=== PATIENT | female | born 1945 | race African-American/Black ===

== ENCOUNTER 2017-02-14 16:19 | Observation (INO) | payer MEDICAID, MEDICARE ==
[2017-02-14] VITALS (7 sets, daily range): BP systolic 133–220; BP diastolic 71–99; PULSE 56–72; RESP 18–21; TEMP 98.3–98.7; O2SAT 97–99
[~2017-02-14] VITALS: Ht 167.6 cm; Wt 96.0 kg
[~2017-02-14 16:19] MED LIST: LORTA10 PO; MOBI15TA PO
[2017-02-14] MEDS ORDERED: HYDR-3535 PO (17:52)
[2017-02-14] MEDS ORDERED: CLON0.1T PO (17:53)
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
[2017-02-14] MEDS ORDERED: NITROGLYCERIN 2% OINT 1 GM PACKET TOP ONE (18:15)
[2017-02-14] MEDS ORDERED: ASPIRIN 81 MG CHEW TAB PO ONE (18:15)
[2017-02-14] MEDS ORDERED: SODIUM CHLORIDE 0.9% FLUSH 10 ML FLUSH IVF PRN (18:15)
[2017-02-14 19:06] LABS: AUTOMATED NEUTROPHIL # 8.1 TH/MM3 (1.8-7.7); BASOPHIL # 0.1 TH/MM3 (0-0.2); BASOPHIL % 0.9 % (0.0-2.0); EOSINOPHIL # 0.1 TH/MM3 (0-0.4); EOSINOPHIL % 1.2 % (0.0-4.0); HEMATOCRIT 36.7 % (35.0-46.0); HEMO FLAGS DIFF FINAL; LYMPH % 18.2 % (9.0-44.0); MEAN CELL VOLUME 85.7 FL (80.0-100.0); MEAN CORPUSCULAR HEMOGLOBIN 27.8 PG (27.0-34.0); MEAN CORPUSCULAR HGB CONC 32.5 % (32.0-36.0); MONO % 7.7 % (0.0-8.0); PLATELET COUNT 334 TH/MM3 (150-450); RED BLOOD COUNT 4.29 MIL/MM3 (4.00-5.30); RED CELL DISTRIBUTION WIDTH 14.7 % (11.6-17.2); WHITE BLOOD COUNT 11.3 TH/MM3 (4.0-11.0)
[2017-02-14 19:12] LABS: APTT (PATIENT) 28.2 SEC (24.3-30.1); INTERNATIONAL NORMALIZED RATIO 0.9 RATIO; PROTHROMBIN TIME - PATIENT 9.8 SEC (9.8-11.6)
[2017-02-14 19:25] LABS: BICARBONATE 34.2 MEQ/L (21.0-32.0); MAGNESIUM 2.6 MG/DL (1.5-2.5); POTASSIUM 3.8 MEQ/L (3.5-5.1)
--- NOTE | 2017-02-14 19:27 | RADRPT ---
EXAM DATE/TIME: 02/14/2017 18:25 [facility] COMPARISON: No previous studies available for comparison. INDICATIONS : Left sided chest pain. MEDICAL HISTORY : Childhood asthma. SURGICAL HISTORY : None. ENCOUNTER: Initial ACUITY: 3 days PAIN SCORE: 7/10 LOCATION: Left chest FINDINGS: A single view of the chest demonstrates the lungs to be symmetrically aerated without evidence of mas s, infiltrate or effusion. The cardiomediastinal contours are unremarkable. Osseous structures are intact. CONCLUSION: Normal examination. Esteban Patiño MD on February 14, 2017 at 19:25 Board Certified Radiologist. This report was verified electronically.
[2017-02-14] MEDS ORDERED: ONDANSETRON HCL 4 MG/2 ML VIAL IV PUSH ONE (19:30)
[2017-02-14] MEDS ORDERED: MORPHINE SULFATE 8 MG/ML INJ IV PUSH ONE (19:30)
[2017-02-14] MEDS ORDERED: ACETAMINOPHEN/HYDROcodone 325 MG/10 MG TAB PO ONE (21:45)
[2017-02-14] MEDS ORDERED: SODIUM CHLORIDE 0.9% FLUSH 10 ML FLUSH IV FLUSH PRN (21:45)
[2017-02-15] MEDS: NITROGLYCERIN 2% OINT 1 GM PACKET TOP SCH ×3 (00:11→12:34)
[2017-02-15 00:28] VITALS: PULSE 52
[2017-02-15 03:45] VITALS: BP 181/86; PULSE 84; RESP 18; TEMP 98; O2SAT 99
[2017-02-15 04:29] VITALS: PULSE 61
[2017-02-15] MEDS ORDERED: MORPHINE SULFATE 4 MG/ML INJ IV PUSH ONE (04:45)
[2017-02-15 06:10] VITALS: O2SAT 98
[2017-02-15 08:43] VITALS: BP 164/74; PULSE 54; RESP 20; TEMP 98; O2SAT 96
[2017-02-15] MEDS ORDERED: SODIUM CHLORIDE 0.9% FLUSH 10 ML FLUSH IV FLUSH SCH (09:00)
[2017-02-15] MEDS ORDERED: KETOROLAC TROMETHAMINE 30 MG/ML (IVP) VIAL IV PUSH ONE (10:00)
[2017-02-15] MEDS ORDERED: REGADENOSON INJ 0.4 MG/5 ML SYR ONE (11:16)
--- NOTE | 2017-02-15 12:19 | RADRPT ---
EXAM DATE/TIME: 02/15/2017 10:24 [facility] COMPARISON: No previous studies available for comparison. INDICATIONS : Left sided chest pain for three days. Angina. DOSE: 26.1 mCi Tc99m Myoview at stress. 8.5 mCi Tc99m Myoview at rest. 0.4 mg Lexiscan STRESS SYMPTOMS: Chest pain. EJECTION FRACTION: 63% MEDICAL HISTORY : Asthma. SURGICAL HISTORY : Appendectomy. section. ENCOUNTER: Initial ACUITY: 3 days PAIN SCALE: 7/10 LOCATION: Left chest TECHNIQUE: The patient underwent pharmacologic stress with infusion of prescribed dose. Continuous ECG tracing was monitored during stress. Gated SPECT imaging was performed after stress and conventional SPECT i maging was performed at rest. The examination was performed on a SPECT/CT scanner, both attenuation and non-corrected datasets were reviewed. FINDINGS: DISTRIBUTION: The best perfused wall at rest is the anterior lateral wall. Small fixed defect is seen in the anter ior septal region. There is no redistribution to suggest ischemia. However Moderate gut activity do es obscure the inferior wall. GATED STUDY: There is intact wall motion and thickening without hypokinetic or dyskinetic segments. CONCLUSION: Ejection fraction is titrated at 63% his compromised by patient motion. RISK CATEGORY: Low (<1% Annual Mortality Rate) Carlos Carranza MD FACR on February 15, 2017 at 12:16 Board Certified Radiologist. This report was verified electronically.
[2017-02-15] MEDS ORDERED: MORPHINE SULFATE 4 MG/ML INJ IV STA (12:47)
[2017-02-15 13:00] VITALS: RESP 16
--- NOTE | 2017-02-15 13:00 | EKG ---
Date Performed: 02/15/2017 Time Performed: 03:47:20 PTAGE: 71 years EKG: Sinus rhythm MARKED LEFT AXIS DEVIATION VOLTAGE CRITERIA FOR LVH POSSIBLE SEPTAL MYOCARDIAL INFARCTION MODERATE T -WAVE ABNORMALITY, CONSIDER INFERIOR ISCHEMIA ABNORMAL ECG INTERPRETATION BASED ON A DEFAULT AGE OF 6 0 YEARS NO PREVIOUS TRACING DOCTOR: Russ Du Interpretating Date/Time 02/15/2017 13:00:02
--- NOTE | 2017-02-15 13:03 | EKG ---
Date Performed: 02/15/2017 Time Performed: 00:54:35 PTAGE: 71 years EKG: SINUS BRADYCARDIA MARKED LEFT AXIS DEVIATION INCOMPLETE RIGHT BUNDLE BRANCH BLOCK LEFT VENT RICULAR HYPERTROPHY AND NONSPECIFIC ST-T CHANGE ABNORMAL ECG PREVIOUS TRACING : 02/14/2017 21.52 DOCTOR: Russ Du Interpretating Date/Time 02/15/2017 13:01:20
--- NOTE | 2017-02-15 13:04 | EKG ---
Date Performed: 02/14/2017 Time Performed: 21:52:29 PTAGE: 71 years EKG: SINUS BRADYCARDIA MARKED LEFT AXIS DEVIATION LEFT VENTRICULAR HYPERTROPHY AND ST-T CHANGE A BNORMAL ECG PREVIOUS TRACING : 02/14/2017 18.39 DOCTOR: Russ Du Interpretating Date/Time 02/15/2017 13:02:40
--- NOTE | 2017-02-15 13:05 | EKG ---
Date Performed: 02/14/2017 Time Performed: 18:39:08 PTAGE: 71 years EKG: SINUS BRADYCARDIA MARKED LEFT AXIS DEVIATION INTRAVENTRICULAR CONDUCTION DELAY LEFT VENTRIC ULAR HYPERTROPHY AND ST-T CHANGE ABNORMAL ECG PREVIOUS TRACING : 09/11/1998 06.49 DOCTOR: Russ Du Interpretating Date/Time 02/15/2017 13:03:58
--- NOTE | 2017-02-15 13:40 | HHI.DCPOC ---
Discharge Care Plan Diagnosis: (1) Atypical chest pain (2) Chronic low back pain Goals to Promote Your Health * To prevent worsening of your condition and complications * To maintain your health at the optimal level Directions to Meet Your Goals Take your medications as prescribed Follow your dietary instruction Follow activity as directed Keep your appointments as scheduled Take your immunizations and boosters as scheduled If your symptoms worsen call your PCP, if no PCP go to Urgent Care Center or Emergency Room Smoking is Dangerous to Your Health. Avoid second hand smoke Call the 24-hour hour crisis hotline for domestic abuse at [facility] Feb 15, 2017 13:39
[2017-02-15] MEDS ORDERED: cloNIDine HCL 0.1 MG TAB PO SCH (21:00)
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
--- NOTE | 2017-02-18 17:05 | TR ---
Date Performed: 02/15/2017 Time Performed: 11:30:09 DOCTOR: Zita Todd DRUG LIST: CLINICAL HISTORY: CHEST PAIN REASON FOR TEST: CHEST PAIN REASON FOR ENDING: OBSERVATION: CONCLUSION: Lexiscan stress test was performed under standard four minute protocol. Radionuclid e was injected one minute prior to ending the test. No electrocardiographic abormalities were present to suggest ischemia. Nuclear imaging and interpretation are pending. COMMENTS:
== END 2017-02-15 15:37 | disposition home or self-care (01) ==
LOC: NEPE 16:19 → NEDA 19:52 → NEPFCDU 23:11
PROVIDERS: ADMIT Internal Medicine Interventional Cardiology; ATTEND Internal Medicine Interventional Cardiology
DX: R07.89 Other chest pain (principal); I10 Essential (primary) hypertension; G89.29 Other chronic pain; M54.5 Low back pain; R94.31 Abnormal electrocardiogram [ECG] [EKG]; J45.909 Unspecified asthma, uncomplicated; Z68.34 Body mass index [BMI] 34.0-34.9, adult; Z87.891 Personal history of nicotine dependence; Z98.1 Arthrodesis status
CPT/HCPCS: 71010; 78452; 80048; 82550; 83735; 84484; 85025; 85610; 85730; 93005; 93017; 96374; 96375; 96376; 99285; A9502; G0378; J1885; J2270; J2405; J2785

== ENCOUNTER 2017-02-28 16:50 | Emergency (ER) | payer MEDICARE ==
[~2017-02-28] VITALS: Ht 167.6 cm; Wt 118.0 kg
[~2017-02-28 16:50] MED LIST changes: +CLON0.1T PO; +HYDR-3535 PO; -LORTA10 PO; -MOBI15TA PO
[2017-02-28 16:51] VITALS: BP 173/77; PULSE 63; RESP 20; TEMP 98.6; O2SAT 99
[2017-02-28] MEDS ORDERED: AMLO5 PO (18:57)
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
[2017-02-28] MEDS ORDERED: SODIUM CHLORIDE 0.9% FLUSH 10 ML FLUSH IVF PRN (19:00)
[2017-02-28] MEDS ORDERED: ONDANSETRON HCL 4 MG/2 ML VIAL IV PUSH ONE (19:00)
[2017-02-28] MEDS ORDERED: MORPHINE SULFATE 4 MG/ML INJ IV PUSH ONE (19:00)
[2017-02-28] MEDS ORDERED: amLODIPine BESYLATE 5 MG TAB PO ONE (19:00)
[2017-02-28 19:11] VITALS: BP 137/78; PULSE 52; RESP 18; O2SAT 100; O2SAT 99
[2017-02-28 19:58] LABS: AUTOMATED NEUTROPHIL # 5.8 TH/MM3 (1.8-7.7); BASOPHIL # 0.1 TH/MM3 (0-0.2); EOSINOPHIL # 0.2 TH/MM3 (0-0.4); EOSINOPHIL % 1.7 % (0.0-4.0); HEMATOCRIT 39.5 % (35.0-46.0); HEMO FLAGS DIFF FINAL; LYMPH % 24.8 % (9.0-44.0); LYMPHOCYTE # 2.2 TH/MM3 (1.0-4.8); MEAN CELL VOLUME 85.6 FL (80.0-100.0); MEAN CORPUSCULAR HEMOGLOBIN 27.4 PG (27.0-34.0); MONO % 6.8 % (0.0-8.0); NEUT % 65.7 % (16.0-70.0); PLATELET COUNT 430 TH/MM3 (150-450); RED BLOOD COUNT 4.62 MIL/MM3 (4.00-5.30); RED CELL DISTRIBUTION WIDTH 14.9 % (11.6-17.2); WHITE BLOOD COUNT 8.9 TH/MM3 (4.0-11.0)
[2017-02-28 20:22] LABS: ANION GAP 7 MEQ/L (5-15); AST (GOT) 27 U/L (15-37); BICARBONATE 29.3 MEQ/L (21.0-32.0); BLOOD UREA NITROGEN 18 MG/DL (7-18); CHLORIDE 102 MEQ/L (98-107); GLOMERULAR FILTRATION RATE 52 ML/MIN (>89); MAGNESIUM 2.5 MG/DL (1.5-2.5); SODIUM (NA) 138 MEQ/L (136-145)
[2017-02-28 20:23] LABS: POTASSIUM 4.7 MEQ/L (3.5-5.1)
[2017-02-28 20:25] LABS: ALKALINE PHOSPHATASE 129 U/L (45-117); ALT (GPT) 27 U/L (10-53); TOTAL BILIRUBIN ADULT 0.3 MG/DL (0.2-1.0)
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
--- NOTE | 2017-02-28 20:50 | EKG ---
Date Performed: 02/28/2017 Time Performed: 19:16:12 PTAGE: 71 years EKG: SINUS BRADYCARDIA MARKED LEFT AXIS DEVIATION LEFT VENTRICULAR HYPERTROPHY AND ST-T CHANGE P OSSIBLE LATERAL MYOCARDIAL INFARCTION ABNORMAL ECG No significant change from prior electrocardiogram . PREVIOUS TRACING : 02/15/2017 03.47 DOCTOR: Enzo Mckeon Interpretating Date/Time 02/28/2017 20:48:35
[2017-02-28 21:21] VITALS: BP 144/76; TEMP 98.4
== END 2017-02-28 21:23 | disposition home or self-care (01) ==
LOC: NEPC 16:50
DX: M54.5 Low back pain (principal); G89.29 Other chronic pain; R94.31 Abnormal electrocardiogram [ECG] [EKG]; I10 Essential (primary) hypertension; J45.909 Unspecified asthma, uncomplicated
CPT/HCPCS: 80053; 83735; 85025; 93005; 96374; 96375; 99284; J2270; J2405

== ENCOUNTER 2017-08-09 10:28 | Emergency (ER) | payer MEDICARE ==
[~2017-08-09] VITALS: Ht 167.6 cm; Wt 102.0 kg
[2017-08-09] MEDS ORDERED: GADODIAMIDE PF 287 MG/ML 20 ML VIAL (for RAD MRI) IVCONTRAST ONE (10:29)
[2017-08-09 10:34] VITALS: BP 197/88; PULSE 61; RESP 16; TEMP 98.3; O2SAT 98
[2017-08-09] MEDS ORDERED: HYDR-3583 PO (10:46)
[2017-08-09] MEDS ORDERED: PROCHLORPERAZINE INJ 10 MG/2 ML VIAL IV PUSH ONE (11:00)
[2017-08-09] MEDS ORDERED: ACETAMINOPHEN 325 MG TAB PO ONE (11:00)
[2017-08-09] MEDS ORDERED: diphenhydrAMINE HCL 50 MG/ML VIAL IM ONE (11:00)
[2017-08-09] MEDS ORDERED: diphenhydrAMINE HCL 50 MG/ML VIAL IV PUSH ONE (11:15)
[2017-08-09 11:36] LABS: AUTOMATED NEUTROPHIL # 4.7 TH/MM3 (1.8-7.7); BASOPHIL # 0.1 TH/MM3 (0-0.2); BASOPHIL % 0.7 % (0.0-2.0); EOSINOPHIL # 0.2 TH/MM3 (0-0.4); EOSINOPHIL % 2.5 % (0.0-4.0); HEMATOCRIT 37.4 % (35.0-46.0); HEMOGLOBIN 12.5 GM/DL (11.6-15.3); MEAN CELL VOLUME 85.3 FL (80.0-100.0); MEAN CORPUSCULAR HEMOGLOBIN 28.5 PG (27.0-34.0); MEAN CORPUSCULAR HGB CONC 33.4 % (32.0-36.0); MEAN PLATELET VOLUME 7.4 FL (7.0-11.0); MONO % 7.5 % (0.0-8.0); MONOCYTE # 0.6 TH/MM3 (0-0.9); NEUT % 62.3 % (16.0-70.0); PLATELET COUNT 371 TH/MM3 (150-450); RED BLOOD COUNT 4.39 MIL/MM3 (4.00-5.30); RED CELL DISTRIBUTION WIDTH 14.6 % (11.6-17.2); WHITE BLOOD COUNT 7.6 TH/MM3 (4.0-11.0)
--- NOTE | 2017-08-09 11:42 | RADRPT ---
EXAM DATE/TIME: 08/09/2017 11:26 [facility] COMPARISON: No previous studies available for comparison. INDICATIONS : Cephalgia today. RADIATION DOSE: 38.82 CTDIvol (mGy) MEDICAL HISTORY : Hypertension. SURGICAL HISTORY : Appendectomy. ENCOUNTER: Initial ACUITY: 1 day PAIN SCALE: 9/10 LOCATION: Bilateral head TECHNIQUE: Multiple contiguous axial images were obtained of the head. Using automated exposure control and adj ustment of the mA and/or kV according to patient size, radiation dose was kept as low as reasonably a chievable to obtain optimal diagnostic quality images. DICOM format image data is available electro nically for review and comparison. FINDINGS: CEREBRUM: There is a mass in the sella extending into the suprasellar cistern. There is erosion of the dorsum s deepa. There is enlargement of the sella. The ventricles are normal for age. No evidence of midline s hift, cerebral mass lesion, hemorrhage or acute infarction. No extra-axial fluid collections are see n. POSTERIOR FOSSA: The cerebellum and brainstem are intact. The 4th ventricle is midline. The cerebellopontine angle i s unremarkable. EXTRACRANIAL: The visualized portion of the orbits is intact. SKULL: The calvaria is intact. No evidence of skull fracture. CONCLUSION: Mass involving the sellar and extending to the suprasellar cistern region with enlargement of the brigida la and erosion of the dorsum sella. This is nonspecific. It most likely is secondary to a pituitary m acroadenoma although other etiologies including aneurysm cannot be excluded. This could be further ev aluated with a contrast-enhanced MRI examination. Esteban Patiño MD on August 09, 2017 at 11:37 Board Certified Radiologist. This report was verified electronically.
[2017-08-09 11:49] LABS: ALBUMIN 3.7 GM/DL (3.4-5.0); AST (GOT) 18 U/L (15-37); BICARBONATE 30.4 MEQ/L (21.0-32.0); BLOOD UREA NITROGEN 14 MG/DL (7-18); CALCIUM 9.1 MG/DL (8.5-10.1); CHLORIDE 104 MEQ/L (98-107); CREATININE 1.15 MG/DL (0.50-1.00); GLOMERULAR FILTRATION RATE 56 ML/MIN (>89); GLUCOSE,RANDOM 104 MG/DL (74-106); SODIUM (NA) 138 MEQ/L (136-145)
[2017-08-09 11:50] VITALS: BP 168/82; PULSE 53; RESP 14; O2SAT 98
[2017-08-09 11:50] LABS: ALT (GPT) 19 U/L (10-53)
[2017-08-09 11:53] LABS: ALKALINE PHOSPHATASE 132 U/L (45-117); TOTAL BILIRUBIN ADULT 0.3 MG/DL (0.2-1.0); TOTAL PROTEIN 7.6 GM/DL (6.4-8.2)
[2017-08-09] MEDS ORDERED: MORPHINE SULFATE 4 MG/ML INJ IV PUSH ONE (12:45)
[2017-08-09 17:13] VITALS: BP 159/79; PULSE 55; RESP 16; O2SAT 98
--- NOTE | 2017-08-09 17:34 | RADRPT ---
EXAM DATE/TIME: 08/09/2017 15:50 [facility] COMPARISON: CT BRAIN W/O CONTRAST, August 09, 2017, 11:26. INDICATIONS : Mass. CONTRAST: 20 cc Omniscan (gadodiamide) IV MEDICAL HISTORY : Hypertension. SURGICAL HISTORY : Appendectomy. Fusion, cervical. ENCOUNTER: Initial ACUITY: 1 day PAIN SCORE: 0/10 LOCATION: cranial TECHNIQUE: Multiplanar, multisequence MRI of the brain was performed both prior to and following the administrat ion of paramagnetic contrast. FINDINGS: CEREBRUM: There is mild generalized atrophy. Ventricles are normal given the degree of atrophy present. There i s a heterogeneous mildly T2 hyperintense mass with within the sella and suprasellar region. It most c losely follows sargent matter signal on T1 and T2-weighted imaging and demonstrates heterogeneous enhanc ement. No cystic areas are identified. Prior CT demonstrated no calcification within the lesion. The mass extends into the right cavernous sinus and abuts the right cavernous carotid artery but causes n o occlusion. The mass measures approximately 2.6 x 1.9 x 2.6 cm and has mass effect on the adjacent s tructures including the optic chiasm. It is not separate from the infundibulum or pituitary gland. Th ere are no flow-voids within the mass to suggest that it represents a vascular valley. No extension i nto the sphenoid sinus is identified. There are no findings to indicate recent ischemia and no acute blood products are identified. WHITE MATTER: There is moderate severity periventricular and subcortical white matter signal change. POSTERIOR FOSSA: The cerebellum and brainstem are intact. The 4th ventricle is midline. The cerebellopontine angle is unremarkable. The cerebellar tonsils are normal in position. DIFFUSION IMAGING: No focal areas of restricted diffusion are seen. No evidence of acute infarction. EXTRACRANIAL: The visualized portions of the orbits and paranasal sinuses are unremarkable. POST-CONTRAST: No abnormal areas of parenchymal or dural enhancement. No evidence of blood-brain barrier breakdown. CONCLUSION: 1. The mass identified on CT measures approximately 2.6 x 1.9 x 2.6 cm and is centered within the brigida la and suprasellar space and also invades the right cavernous sinus. 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 No separate pituitary gland is identified suggesting again st a meningioma and no features are identified to suggest a vascular etiology. The lesion has mass ef fect on the optic chiasm. 2. Chronic changes include mild cerebral atrophy and moderate severity chronic periventricular white matter change characteristic of chronic microvascular ischemia. Esteban Veronica MD on August 09, 2017 at 17:21 Board Certified Radiologist. This report was verified electronically.
[2017-08-09] MEDS ORDERED: BUTA1CAP PO (17:53)
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
== END 2017-08-09 17:54 | disposition home or self-care (01) ==
LOC: NEPC 10:28
DX: R51 Headache (principal); I10 Essential (primary) hypertension
CPT/HCPCS: 70450; 70553; 80053; 85025; 96374; 96375; 99284; A9579; J0780; J1200; J2270

== ENCOUNTER 2018-01-05 23:13 | Observation (INO) ==
[2018-01-06] MEDS ORDERED: Morphine Inj 4 MG/ML Vial IV.PUSH ONE (00:18)
--- NOTE | 2018-01-06 00:18 | ED ---
HPI General Chief complaint: Back Pain/Injury Stated complaint: High BP Time Seen by Provider: 01/06/18 00:17 History of Present Illness HPI narrative: The patient is a 72 year old female who presents to the [facility] emergency department with a history of headache and dizziness that began in the afternoon. She reports that it was associated with back pain in the right side of her low back. She reports that the back pain is similar to her chronic low back pain. She got off of work she took a hydrocodone for this. She reports that she is followed by Dr. Winn for her chronic back pain and opiate prescriptions. The patient reports that she is on clonidine for high blood pressure. She reports that she got home and checked her blood pressure and noted that it was elevated. She last took the clonidine at approximately 5 PM. The patient reports that the headache is bitemporal. She denies having any nausea or vomiting associated with this. She denies having any neck pain. She denies having any numbness or tingling to her extremities or weakness or extremities. She denies having any vertigo. She denies having any changes in her vision, facial droop, or difficulty with word finding ability. The patient reports that she does occasionally have dyspnea, especially when she is under increased stress. She reports that she did have a sensation of shortness of breath, dyspnea last night due to stressors at home. On review of systems otherwise, the patient denies having any known recent fevers, cough, congestion , chest pain, abdominal pain, vomiting, diarrhea, or urinary symptoms. Related Data Home Medications Medication Instructions Recorded Confirmed clonidine HCl 0.1 mg PO BID 01/05/18 01/05/18 hydrocodone-acetaminophen 1 tab PO Q4-6H PRN 01/05/18 01/05/18 Allergies Allergy/AdvReac Type Severity Reaction Status Date / Time No Known Allergies Allergy Verified 01/05/18 23:20 Review of Systems ROS Unobtainable All other systems reviewed negative except as stated in HPI [facility] Medical History Medical History Chronic back pain (Acute) Hypertension (Acute) Patient denies medical problems (Acute) Surgical History Surgical History History of neck surgery (Acute) History of uterine suspension procedure (Acute) Surgical procedure on lower extremity within past 6 months (Acute) Social History Social History Substance History: No History of Abuse Second Hand Smoke Exposure: No Smoking Status: Former smoker How Often Do You Have a Drink Containing Alcohol: Monthly or less Recent Travel in [facility] within the Last 8 Weeks: No Recent Out of Country Travel within the Last 8 Weeks: No Immunization History Tetanus Immunization: Unsure Hx Influenza Vaccine This Season: No Exam Const General: cooperative, no acute distress and well developed Nutritional Appearance: well nourished Orientation: alert, awake and oriented x3 HENMT Head: normocephalic and atraumatic Nose: no nasal discharge and no epistaxis Mouth: moist mucous membranes Throat: posterior oropharynx normal Eyes Sclera: normal sclerae Pupils: PERRL Neck Neck: normal visual inspection, trachea midline and no JVD Resp Effort & Inspection: no use of accessory muscles Auscultation: clear to auscultation bilaterally Cardio Rate: regular rate Rhythm: regular rhythm Heart Sounds: no murmurs GI Inspection: non-distended Palpation: soft, no hepatosplenomegaly and nontender Back/Spine/Pelvis Back: no CVA tenderness Cervical Spine: normal cervical lordosis and No cervical spinal tenderness Thoracic/Lumbar Spine: No thoracic spinal tenderness, No lumbar spinal tenderness and other (Patient reports paraspinal muscle tenderness on the right side of the lumbar paraspinal musculature) Skin General: dry skin (warm) Neuro General: alert, awake and oriented x3 Cranial Nerves: CN's II-XI intact bilaterally Speech: speech normal Motor: no movement abnormalities noted Sensory Exam: no sensory deficits noted Extrem General: normal to inspection (Except in the left leg, hyperpigmentation is noted of the left leg with venous stasis changes. The patient reports having varicose vein surgery on the left leg previously with a history of this hyperpigmentation since then), no clubbing, no cyanosis and no edema Psych Mood: congruent mood Affect: normal affect Judgment: judgment good Course Consultations Consultation #1: The patient's results were discussed with the patient, including the plan of care. I explained that further testing and/ or monitoring is indicated based on the patient's history, examination, and/ or laboratory findings. Therefore, I recommended admission for additional evaluation. The patient expressed understanding and was agreeable with this plan. The patient was admitted to the hospital in Dr. Barnett condition and sent to a bed under the care of the [facility] service. Initial Documented Vital Signs Temperature 98.3 F 01/05/18 23:20 Pulse Rate 63 01/05/18 23:20 Respiratory Rate 16 01/05/18 23:20 Blood Pressure 192/77 H 01/05/18 23:20 Pulse Oximetry 98 01/05/18 23:20 Last Documented Vital Signs Temperature 98.8 F 01/07/18 03:44 Pulse Rate 56 L 01/07/18 03:44 Respiratory Rate 17 01/07/18 03:44 Blood Pressure 156/74 H 01/07/18 03:44 Pulse Oximetry 98 01/07/18 03:44 Medical Decision Making MDM Narrative Medical decision making narrative: During the course of the patient's emergency department visit, the patient's history, examination, and differential diagnosis were reviewed with the patient. The patient was placed on a cardiac rn with oximetry and frequent blood pressure monitoring. The patient had IV access obtained and blood work sent for analysis. The patient was initially provided morphine 4 mg IV for pain, Reglan 5 mg IV for nausea. Laboratory studies are remarkable for a white count of 9.7, platelets 366, neutrophil percent 75.8, hemoglobin 12.1.PT PTT within normal limits, CMP is remarkable for a troponin I that is elevated at 0.07, CPK is 88, lipase 64, GFR is 52, creatinine 1.23, chloride 109, anion gap is 3. The patient's troponins are compared to prior troponins done at this facility. The patient last had a troponin done on no on February 15, 2017 that was 0.02. Given the patient's history of hypertension, shortness of breath at times with exertion, and elevated troponin, the patient will be admitted to the hospitalist service for continued evaluation and treatment. The patient reported taking an aspirin earlier today. The patient was given nitroglycerin 1 inch [address] chest wall. 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 The patient's results were discussed with her regarding the CT scan findings. She reports that she is aware of this and it is monitored by her primary care physician. The patient's results were discussed with the patient, including the plan of care. I explained that further testing and/ or monitoring is indicated based on the patient's history, examination, and/ or laboratory findings. Therefore, I recommended admission for additional evaluation. The patient expressed understanding and was agreeable with this plan. The patient was admitted to the hospital in guarded condition and sent to a bed under the care of the [facility] service. Lab Data Result diagrams: 01/06/18 00:24 01/06/18 00:24 Lab Results 01/06/18 01/06/18 01/06/18 Range/Units 00:24 00:24 00:24 WBC 9.7 (4.0-11.0) th/mm3 RBC 4.39 (4.00-5.30) mil/mm3 Hgb 12.1 (11.6-15.3) gm/dL Hct 37.3 (35.0-46.0) % MCV 85.0 (80.0-100.0) fL MCH 27.5 (27.0-34.0) pg MCHC 32.4 (32.0-36.0) % RDW 14.6 (11.6-17.2) % Plt Count 366 (150-450) th/mm3 MPV 7.6 (7.0-11.0) fL Neut % (Auto) 75.8 H (16.0-70.0) % Lymph % (Auto) 14.7 (9.0-44.0) % [place] % (Auto) 7.3 (0.0-8.0) % Eos % (Auto) 1.5 (0.0-4.0) % Baso % (Auto) 0.7 (0.0-2.0) % Neut # (Auto) 7.3 (1.8-7.7) th/mm3 Lymph # (Auto) 1.4 (1.0-4.8) th/mm3 [place] # (Auto) 0.7 (0.0-0.9) th/mm3 Eos # (Auto) 0.1 (0.0-0.4) th/mm3 Baso # (Auto) 0.1 (0.0-0.2) th/mm3 WBC Differential . Differential Comment Auto diff final PT 9.8 (9.8-11.6) sec INR 1.0 Ratio APTT 26.6 (24.3-30.1) sec Sodium 142 (136-145) meq/L Potassium 3.9 (3.5-5.1) meq/L Chloride 109 H (98-107) meq/L Carbon Dioxide 29.6 (21.0-32.0) meq/L Anion Gap 3 L (5-15) meq/L BUN 15 (7-18) mg/dL Creatinine 1.23 H (0.50-1.00) mg/dL Estimated GFR 52 L (>89) mL/min Random Glucose 100 (74-106) mg/dL Calcium 8.5 (8.5-10.1) mg/dL Total Bilirubin 0.4 (0.2-1.0) mg/dL AST 17 (15-37) U/L ALT 24 (10-53) U/L Alkaline Phosphatase 108 (45-117) U/L Total Creatine Kinase 88 (26-192) U/L Troponin I 0.07 H (0.02-0.05) ng/mL Total Protein 7.5 (6.4-8.2) g/dL Albumin 3.6 (3.4-5.0) g/dL Lipase 64 L (73-393) U/L Urine Color (Yellw/Straw) Urine Clarity (Clear) Urine pH (5.0-8.5) Ur Specific Conde (1.002-1.035) Urine Protein (Neg-Trace) mg/dL Urine Glucose (UA) (Negative) mg/dL Urine Ketones (Negative) mg/dL Urine Occult Blood (Negative) Urine Nitrate (Negative) Urine Bilirubin (Negative) Urine Urobilinogen (Less than 2) mg/dL Ur Leukocyte Esterase (Negative) Urine RBC (0-3) /hpf Urine WBC (0-5) /hpf Ur Squamous Epith Cells (0-5) /hpf Urine Bacteria (None) /hpf Urine Mucus (Occasional) /lpf Micro UA Comment Urine Culture Comments 01/06/18 01/06/18 01/06/18 Range/Units 03:45 10:05 12:05 WBC (4.0-11.0) th/mm3 RBC (4.00-5.30) mil/mm3 Hgb (11.6-15.3) gm/dL Hct (35.0-46.0) % MCV (80.0-100.0) fL MCH (27.0-34.0) pg MCHC (32.0-36.0) % RDW (11.6-17.2) % Plt Count (150-450) th/mm3 MPV (7.0-11.0) fL Neut % (Auto) (16.0-70.0) % Lymph % (Auto) (9.0-44.0) % [place] % (Auto) (0.0-8.0) % Eos % (Auto) (0.0-4.0) % Baso % (Auto) (0.0-2.0) % Neut # (Auto) (1.8-7.7) th/mm3 Lymph # (Auto) (1.0-4.8) th/mm3 [place] # (Auto) (0.0-0.9) th/mm3 Eos # (Auto) (0.0-0.4) th/mm3 Baso # (Auto) (0.0-0.2) th/mm3 WBC Differential Differential Comment PT (9.8-11.6) sec INR Ratio APTT (24.3-30.1) sec Sodium (136-145) meq/L Potassium (3.5-5.1) meq/L Chloride (98-107) meq/L Carbon Dioxide (21.0-32.0) meq/L Anion Gap (5-15) meq/L BUN (7-18) mg/dL Creatinine (0.50-1.00) mg/dL Estimated GFR (>89) mL/min Random Glucose (74-106) mg/dL Calcium (8.5-10.1) mg/dL Total Bilirubin (0.2-1.0) mg/dL AST (15-37) U/L ALT (10-53) U/L Alkaline Phosphatase (45-117) U/L Total Creatine Kinase 70 73 (26-192) U/L Troponin I 0.06 H 0.06 H (0.02-0.05) ng/mL Total Protein (6.4-8.2) g/dL Albumin (3.4-5.0) g/dL Lipase (73-393) U/L Urine Color Yellow (Yellw/Straw) Urine Clarity Hazy H (Clear) Urine pH 6.0 (5.0-8.5) Ur Specific Conde 1.015 (1.002-1.035) Urine Protein Negative (Neg-Trace) mg/dL Urine Glucose (UA) Negative (Negative) mg/dL Urine Ketones Negative (Negative) mg/dL Urine Occult Blood Negative (Negative) Urine Nitrate Negative (Negative) Urine Bilirubin Negative (Negative) Urine Urobilinogen Less than 2 (Less than 2) mg/dL Ur Leukocyte Esterase Large H (Negative) Urine RBC 1 (0-3) /hpf Urine WBC 8 H (0-5) /hpf Ur Squamous Epith Cells 7 (0-5) /hpf Urine Bacteria Rare H (None) /hpf Urine Mucus Few H (Occasional) /lpf Micro UA Comment Culture not ind Urine Culture Comments Culture not ind Imaging Data Radiologist's impression: Head CT 01/06/18 01:00 CONCLUSION: 1. Stable mass lesion in the sella measuring 1.8 cm in diameter and extending up into the base of the right sphenoid. 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 2. Mild periventricular small vessel ischemic demyelination. 3. Nothing acute. . Chest X-Ray 01/06/18 02:17 CONCLUSION: 1. Hypoinflation with some minimal atelectatic changes above the left hemidiaphragm. 2. Heart size is borderline prominent but well compensated. ECG Data Attestation: I personally reviewed and interpreted this ECG as follows: Interpretation: The patient had an EKG done. The patient's EKG reveals a sinus bradycardia heart rate of 55, QRS duration is 107 ms, QTC 451 ms. The patient is noted to have marked left axis deviation, and incomplete right bundle branch block, left ventricular hypertrophy with nonspecific ST-T wave abnormalities, ST depression noted in lead III, T waves are inverted in lead II, 3, V4, V5, V6 peer Discharge Plan Discharge Disposition Patient Disposition: 30 Still Patient Discharge Details Diagnosis: Hypertension, uncontrolled, Elevated troponin I level Physicians Team ED Provider: Beena Triplett Primary Care Provider: UNKNOWN, Attending Provider: Jose Alberto Stack Other Providers: [facility],Insurance Status ED Status: Left Department Discharge Information Discharge Date/Time: 01/06/18 05:04
[2018-01-06 00:48] LABS: Baso # (Auto) 0.1 th/mm3 (0.0-0.2); Baso % (Auto) 0.7 % (0.0-2.0); Eos # (Auto) 0.1 th/mm3 (0.0-0.4); Eos % (Auto) 1.5 % (0.0-4.0); Hematocrit 37.3 % (35.0-46.0); Hemoglobin 12.1 gm/dL (11.6-15.3); Lymph # (Auto) 1.4 th/mm3 (1.0-4.8); Lymph % (Auto) 14.7 % (9.0-44.0); Mean Corpuscular HGB Conc 32.4 % (32.0-36.0); Mean Corpuscular Hemoglobin 27.5 pg (27.0-34.0); Mean Platelet Volume 7.6 fL (7.0-11.0); Mono # (Auto) 0.7 th/mm3 (0.0-0.9); Mono % (Auto) 7.3 % (0.0-8.0); Neut # (Auto) 7.3 th/mm3 (1.8-7.7); Neut % (Auto) 75.8 % (16.0-70.0); Platelet Count 366 th/mm3 (150-450); Red Blood Count 4.39 mil/mm3 (4.00-5.30); Red Cell Distribution Width 14.6 % (11.6-17.2); White Blood Count 9.7 th/mm3 (4.0-11.0)
[2018-01-06 00:58] LABS: Activated Partial Thrombo Time 26.6 sec (24.3-30.1); Prothrombin Time 9.8 sec (9.8-11.6)
[2018-01-06 01:14] LABS: Alanine Aminotransferase 24 U/L (10-53); Albumin 3.6 g/dL (3.4-5.0); Alkaline Phosphatase 108 U/L (45-117); Anion Gap 3 meq/L (5-15); Aspartate Aminotransferase 17 U/L (15-37); Blood Urea Nitrogen 15 mg/dL (7-18); Calcium 8.5 mg/dL (8.5-10.1); Carbon Dioxide 29.6 meq/L (21.0-32.0); Chloride 109 meq/L (98-107); Glomerular Filtration Rate 52 mL/min (>89); Glucose,Random 100 mg/dL (74-106); Lipase 64 U/L (73-393); Potassium 3.9 meq/L (3.5-5.1); Sodium 142 meq/L (136-145); Total Protein 7.5 g/dL (6.4-8.2); Troponin I 0.07 ng/mL (0.02-0.05)
[2018-01-06 01:15] LABS: Creatine Kinase 88 U/L (26-192)
--- NOTE | 2018-01-06 01:53 | CT ---
EXAM DATE: 01/06/2018 1:30 AM EDT AGE/SEX: 72 years / Female INDICATIONS: High blood pressure, cephalgia. CLINICAL DATA: This is the patient's initial encounter. Patient reports that signs and symptoms have been present for 1 day and indicates a pain score of 4/10. MEDICAL/SURGICAL HISTORY: Hypertension. None. RADIATION DOSE: 36.24 CTDI (mGy) [place]PAR[place]: [facility] [place]/09/2017. [facility] [place] W/O CONTRAST, 08/09/2017. . TECHNIQUE: CT of the head without contrast. Using automated exposure control and adjustment of the mA and/or kV according to patient size, radiation dose was kept as low as reasonably achievable to ob tain optimal diagnostic quality images. DICOM format image data is available electronically for revi ew and comparison. FINDINGS: Cerebrum: The ventricles are normal for age. As seen previously, is a 1.8 cm mass lesion in the nathalie on of the sella extending cephalad into the base of the right sphenoid sinus. Findings are characteri stic of a macroadenoma and are grossly unchanged. Multiple periventricular areas of diminished atten uation characteristic of small vessel ischemic demyelination. No extraaxial fluid collections are see n. Posterior Fossa: The cerebellum and brainstem are intact. The 4th ventricle is midline. The cerebe llopontine angle is unremarkable. Extracranial: The visualized portion of the orbits is intact. Skull: The calvaria is intact. No evidence of skull fracture. CONCLUSION: 1. Stable mass lesion in the sella measuring 1.8 cm in diameter and extending up into the base of th e right sphenoid. 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 2. Mild periventricular small vessel ischemic demyelination. 3. Nothing acute. . Electronically signed by: Tay Alcaraz MD 01/06/2018 1:52 AM EDT
--- NOTE | 2018-01-06 02:37 | XR ---
EXAM DATE: 01/06/2018 2:30 AM EDT AGE/SEX: 72 years / Female INDICATIONS: Short of breath. CLINICAL DATA: This is the patient's initial encounter. Patient reports that signs and symptoms have been present for 1 day and indicates a pain score of 5/10. MEDICAL/SURGICAL HISTORY: None. None. [place] [facility] [place]. . FINDINGS: A single AP view of the chest demonstrates the lungs to be symmetrically hypoinflated with some minim al atelectatic changes above the left hemidiaphragm. No confluent infiltrate or effusion. Heart size is borderline prominent but well compensated. Osseous structures are intact with some degenerative sp urring of the dorsal spine. Anterior fixation of the mid and lower cervical spine. CONCLUSION: 1. Hypoinflation with some minimal atelectatic changes above the left hemidiaphragm. 2. Heart size is borderline prominent but well compensated. Electronically signed by: Tay Alcaraz MD 01/06/2018 2:35 AM EDT
[2018-01-06] MEDS ORDERED: Bisacodyl 10 MG Supp RECTAL PRN (03:45)
[2018-01-06] MEDS ORDERED: Sod Chloride 0.9% Inj 1,000 ML IV.CONT SCH (03:45)
[2018-01-06] MEDS ORDERED: Temazepam 15 MG Capsule PO PRN (03:45)
[2018-01-06] MEDS ORDERED: Acetaminophen 325 MG Tablet PO PRN (03:45)
[2018-01-06 04:11] LABS: Bacteria,Urine Rare /hpf; Bilirubin,Urine Negative (Negative); Clarity,Urine Hazy (Clear); Color,Urine Yellow (Yellw/Straw); Glucose,Urine (UA) Negative (Negative); Leukocyte Esterase,Urine Large (Negative); Mucus,Urine Few /lpf (Occasional); Nitrite,Urine Negative (Negative); Specific Gravity,Urine 1.015 (1.002-1.035); Squamous Epithelial Cell,Urine 7 /hpf (0-5)
[2018-01-06] MEDS: Heparin - SQ 10,000 UNITS/ML Vial SQ SCH ×3 (04:22→20:29)
[2018-01-06] MEDS: Senna/Docusate Sodium 8.6/50 MG Tablet PO SCH ×2 (08:41→20:29)
--- NOTE | 2018-01-06 10:00 | ECG ---
Date Performed: 01/06/2018 Time Performed: 02:39:01 PTAGE: 72 years EKG: SINUS BRADYCARDIA MARKED LEFT AXIS DEVIATION INCOMPLETE RIGHT BUNDLE BRANCH BLOCK LEFT VENT RICULAR HYPERTROPHY AND ST-T CHANGE POSSIBLE SEPTAL MYOCARDIAL INFARCTION ABNORMAL ECG PREVIOUS TRACING : 02/28/2017 19.16 DOCTOR: Ronnie Tomlinson Interpretating Date/Time 01/06/2018 09:59:58
[2018-01-06 11:21] LABS: Troponin I 0.06 ng/mL (0.02-0.05)
[2018-01-06] MEDS ORDERED: amLODIPine 5 MG Tablet PO SCH (12:00)
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
[2018-01-06] MEDS ORDERED: Butalbital/APAP/Caff 50/325/40 MG Tablet PO PRN (12:13)
[2018-01-06 13:02] LABS: Troponin I 0.06 ng/mL (0.02-0.05)
[2018-01-07] MEDS: Heparin - SQ 10,000 UNITS/ML Vial SQ SCH ×2 (04:30→12:15)
[2018-01-07] MEDS ORDERED: amLODIPine 10 MG Tablet PO SCH (05:35)
[2018-01-07 07:34] LABS: Baso # (Auto) 0.1 th/mm3 (0.0-0.2); Baso % (Auto) 0.8 % (0.0-2.0); Eos # (Auto) 0.1 th/mm3 (0.0-0.4); Eos % (Auto) 1.7 % (0.0-4.0); Hematocrit 34.6 % (35.0-46.0); Hemoglobin 11.4 gm/dL (11.6-15.3); Lymph # (Auto) 1.7 th/mm3 (1.0-4.8); Lymph % (Auto) 23.2 % (9.0-44.0); Mean Corpuscular HGB Conc 32.9 % (32.0-36.0); Mean Corpuscular Volume 84.9 fL (80.0-100.0); Mean Platelet Volume 7.2 fL (7.0-11.0); Mono # (Auto) 0.6 th/mm3 (0.0-0.9); Mono % (Auto) 8.2 % (0.0-8.0); Neut # (Auto) 4.8 th/mm3 (1.8-7.7); Neut % (Auto) 66.1 % (16.0-70.0); Platelet Count 337 th/mm3 (150-450); Red Blood Count 4.07 mil/mm3 (4.00-5.30); Red Cell Distribution Width 14.8 % (11.6-17.2); White Blood Count 7.3 th/mm3 (4.0-11.0)
[2018-01-07 07:48] LABS: Calcium 8.7 mg/dL (8.5-10.1); Carbon Dioxide 28.5 meq/L (21.0-32.0); Potassium 4.1 meq/L (3.5-5.1)
[2018-01-07 08:12] VITALS: RESP 18
[2018-01-07] MEDS: Senna/Docusate Sodium 8.6/50 MG Tablet PO SCH (09:29)
[2018-01-07 11:28] VITALS: TEMP 98.7
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
[2018-01-07 16:10] VITALS: BP 169/75; PULSE 68; O2SAT 96
== END 2018-01-07 18:29 | disposition home or self-care (01) ==
LOC: NEPE 23:13 → NEPFCDU 23:13 → NEDA 23:13 → NEPFCDU 01-06 04:38
PROVIDERS: ADMIT Internal Medicine; ATTEND Internal Medicine